=== PATIENT | female | born 1975 | race Two or more races ===

== ENCOUNTER 2016-09-09 13:35 | Emergency (ER) | payer SELFPAY ==
[2016-09-09 14:30] VITALS: BP 146/80
[2016-09-09] MEDS ORDERED: LIDOCAINE 1% HCL (LOCAL ANESTH.) INJ 20ML MDV IJ ONE (14:45)
[2016-09-09] MEDS ORDERED: TETANUS-DIPTH-ACEL PERTUSSIS 0.5ML SYRG IM ONE (14:45)
[2016-09-09] MEDS ORDERED: NEOMYCIN-BACITRACIN-POLYM UNITDOSE PKG TOP OINT TOP ONE (14:45)
== END 2016-09-09 15:35 | disposition home or self-care (01) ==
LOC: ER 13:38
DX: S61.304A Unspecified open wound of right ring finger with damage to nail, initial encounter (principal); W22.8XXA Striking against or struck by other objects, initial encounter; Y93.89 Activity, other specified; Y99.8 Other external cause status; Y92.89 Other specified places as the place of occurrence of the external cause
CPT/HCPCS: 11730; 90471; 90715; 99284; J2001

== ENCOUNTER 2016-09-11 17:06 | Emergency (ER) | payer SELFPAY ==
[~2016-09-11] VITALS: Ht 157.5 cm; Wt 77.1 kg
[2016-09-11 17:24] VITALS: BP 118/83
== END 2016-09-11 18:07 | disposition home or self-care (01) ==
LOC: ER 17:11
DX: S61.304D Unspecified open wound of right ring finger with damage to nail, subsequent encounter (principal); Z48.01 Encounter for change or removal of surgical wound dressing